=== PATIENT | female | born 1980 | race American Indian/Alaskan Native ===

== ENCOUNTER 2020-10-22 14:22 | Emergency (ER) | payer MEDICAID, OTHER ==
--- NOTE | 2020-10-22 15:26 | Emergency Department Report ---
ED Palpitations HPI - General Chief Complaint: Arrhythmia/Palpitations Stated Complaint: WEAKNESS/TACHYCARDIA Time Seen by Provider: 10/22/20 15:11 Source: patient, EMS Mode of arrival: Stretcher Limitations: No Limitations - History of Present Illness Initial Comments: Patient is 39 years old female with history of an anxiety and panic attack. Patient stated that she was talking on the phone and all of a sudden she started having palpitation and shortness of breath. Patient stated that her symptoms is completely resolved now. Patient stated that she was diagnosed with pneumonia last week in another ER. Patient denied any fever or chills. No chest pain, abdominal pain, nausea or vomiting. MD Complaint: rapid heart beat, "heart racing", palpitations -: Sudden Context: occured during rest ED Review of Systems ROS: Stated complaint: WEAKNESS/TACHYCARDIA Other details as noted in HPI Comment: All other systems reviewed and negative Constitutional: denies: chills, fever Respiratory: shortness of breath, SOB at rest. denies: cough, SOB with exertion Cardiovascular: palpitations. denies: chest pain Gastrointestinal: denies: abdominal pain, nausea, vomiting Psychiatric: anxiety. denies: auditory hallucinations, visual hallucinations, homicidal thoughts, suicidal thoughts ED Past Medical Hx - Past Medical History Hx Hypertension: Yes Hx GERD: Yes - Surgical History Additional Surgical History: X 4 - Social History Smoking Status: Never Smoker Substance Use Type: Alcohol ED Physical Exam - General Limitations: No Limitations General appearance: alert, in no apparent distress, anxious - Head Head exam: Present: atraumatic, normocephalic, normal inspection - Eye Eye exam: Present: normal appearance - ENT ENT exam: Present: normal exam, mucous membranes moist - Neck Neck exam: Present: normal inspection, full ROM. Absent: tenderness, meningismus - Respiratory Respiratory exam: Present: normal lung sounds bilaterally - Cardiovascular Cardiovascular Exam: Present: tachycardia - GI/Abdominal GI/Abdominal exam: Present: soft, normal bowel sounds. Absent: distended, tenderness, guarding, rebound, rigid, organomegaly, mass, bruit, pulsatile mass, hernia - Extremities Exam Extremities exam: Present: normal inspection, full ROM, normal capillary refill. Absent: tenderness, pedal edema, joint swelling, calf tenderness - Back Exam Back exam: Present: normal inspection, full ROM. Absent: CVA tenderness (R), CVA tenderness (L) - Neurological Exam Neurological exam: Present: alert, oriented X3, CN II-XII intact - Psychiatric Psychiatric exam: Present: normal mood, anxious - Skin Skin exam: Present: warm, intact, normal color ED Course Vital Signs 10/22/20 10/22/20 10/22/20 14:42 14:43 15:00 Temperature 98.1 F Pulse Rate 102 H 103 H 93 H Respiratory 18 18 19 Rate Blood Pressure 129/82 Blood Pressure 132/82 [Right] O2 Sat by Pulse 96 96 Oximetry 10/22/20 10/22/20 10/22/20 16:00 16:30 17:00 Temperature Pulse Rate 91 H 86 86 Respiratory 18 15 21 Rate Blood Pressure 123/82 129/91 129/85 Blood Pressure [Right] O2 Sat by Pulse 96 96 Oximetry ED Medical Decision Making - Lab Data Result diagrams: 10/22/20 15:39 10/22/20 15:39 - EKG Data -: EKG Interpreted by Ia EKG shows normal: sinus rhythm Rate: normal - EKG Data Interpretation: no acute changes - Radiology Data Radiology results: report reviewed - Medical Decision Making Patient is 39 years old female with history of an anxiety and panic attack. Patient stated that she was talking on the phone and all of a sudden she started having palpitation and shortness of breath. Patient stated that her symptoms is completely resolved now. Patient stated that she was diagnosed with pneumonia last week in another ER. Patient denied any fever or chills. No chest pain, abdominal pain, nausea or vomiting. EKG shows sinus rhythm with no arrhythmia. Chest x-ray is unremarkable. Labs reviewed and is negative for acute finding. Patient symptoms most likely related to her history of anxiety. Patient advised to follow-up with her primary doctor in the next 2 to 3 days and to return to the ER if she develop any new symptoms. Critical care attestation.: If time is entered above; I have spent that time in minutes in the direct care of this critically ill patient, excluding procedure time. ED Disposition Clinical Impression: Panic anxiety syndrome Disposition: DC-01 TO HOME OR SELFCARE Is pt being admited?: No Condition: Stable Instructions: Panic Attack, [id number], Managing Anxiety, Adult Referrals: PRIMARY CARE, [Primary Care Provider] - 3-5 Days
--- NOTE | 2020-10-22 15:35 | XRay Report ---
CHEST 1 VIEW INDICATION / CLINICAL INFORMATION: sob. COMPARISON: 05/22/2012 FINDINGS: SUPPORT DEVICES: None. HEART / MEDIASTINUM: No significant abnormality. LUNGS / PLEURA: Low lung volumes without significant pleural or parenchymal abnormality. No pneumotho rax. ADDITIONAL FINDINGS: No significant additional findings. IMPRESSION: 1. No acute findings. Signer Name: Catrachito Llanes MD Signed: 10/22/2020 3:30 PM Workstation Name: [id number]
[2020-10-22 16:07] LABS: Basophils % (Auto) 0.4 % (0.0-1.8); Eosinophils # (Auto) 0.1 K/mm3 (0.0-0.4); Eosinophils % (Auto) 0.8 % (0.0-4.3); Hematocrit 38.9 % (30.3-42.9); Hemoglobin 12.3 gm/dl (10.1-14.3); Lymphocytes # (Auto) 2.1 K/mm3 (1.2-5.4); Lymphocytes % (Auto) 21.2 % (13.4-35.0); Mean Corpuscular HGB Conc 32 % (30-34); Mean Corpuscular Volume 80 fl (79-97); Monocytes # (Auto) 0.4 K/mm3 (0.0-0.8); Monocytes % (Auto) 4.4 % (0.0-7.3); Platelet Count 295 K/mm3 (140-440); Red Blood Count 4.83 M/mm3 (3.65-5.03); Red Cell Distribution Width 16.3 % (13.2-15.2)
[2020-10-22 16:27] LABS: Blood Urea Nitrogen 12 mg/dL (7-17); Hemolysis Index 4
[2020-10-22 16:31] LABS: BUN/Creatinine Ratio 20
[2020-10-22 17:06] VITALS: BP 129/85
== END 2020-10-22 17:30 | disposition home or self-care (01) ==
LOC: ED 14:22
DX: F41.9 Anxiety disorder, unspecified (principal); F43.0 Acute stress reaction
CPT/HCPCS: 36415; 71045; 80048; 84703; 85025; 93005